=== PATIENT | male | born 1935 | race Caucasian/White ===

== ENCOUNTER 2017-02-25 17:33 | Emergency (ER) | payer MEDICARE ==
[~2017-02-25] VITALS: Ht 172.7 cm; Wt 59.9 kg
[2017-02-25] MEDS ORDERED: TRAM50 PO (17:42)
[2017-02-25] MEDS ORDERED: Oxycodone HCl20 M1 PO (17:42)
[2017-02-25] MEDS ORDERED: LISI20 PO (17:43)
[2017-02-25] MEDS ORDERED: Zanaflex6 MG PO (17:43)
== END 2017-02-25 18:18 | disposition home or self-care (01) ==
LOC: ER 17:33
DX: M25.511 Pain in right shoulder (principal); M25.512 Pain in left shoulder; M25.551 Pain in right hip; Z79.899 Other long term (current) drug therapy; Z87.891 Personal history of nicotine dependence
CPT/HCPCS: 99283

== ENCOUNTER 2017-03-19 12:35 | Emergency (ER) | payer MEDICARE ==
[~2017-03-19] VITALS: Ht 172.7 cm; Wt 60.8 kg
[~2017-03-19 12:35] MED LIST: LISI20 PO; Oxycodone HCl20 M1 PO; TRAM50 PO; Zanaflex6 MG PO
[2017-03-19] MEDS ORDERED: ROPI2 PO (16:04)
[2017-03-19] MEDS ORDERED: Prinivil10 MG PO (16:04)
[2017-03-19] MEDS ORDERED: HYDMOR4 PO (16:04)
== END 2017-03-19 16:44 | disposition home or self-care (01) ==
LOC: ER 12:35
DX: M54.16 Radiculopathy, lumbar region (principal)
CPT/HCPCS: 96372; 99284; J1170; J1885

== ENCOUNTER 2017-03-20 18:02 | Emergency (ER) | payer MEDICARE ==
[~2017-03-20] VITALS: Ht 172.7 cm; Wt 60.8 kg
[~2017-03-20 18:02] MED LIST changes: +HYDMOR4 PO; +Prinivil10 MG PO; +ROPI2 PO
== END 2017-03-20 21:12 | disposition home or self-care (01) ==
LOC: ER 18:02
DX: M54.5 Low back pain (principal); G89.29 Other chronic pain; R05 Cough; G47.00 Insomnia, unspecified; Z79.899 Other long term (current) drug therapy; Z79.891 Long term (current) use of opiate analgesic; Z87.891 Personal history of nicotine dependence
CPT/HCPCS: 71046; 96372; 99284; J1170

== ENCOUNTER 2017-08-17 07:53 | Day surgery (SDC) | payer MEDICARE ==
[~2017-08-17] VITALS: Ht 170.2 cm; Wt 59.9 kg
[~2017-08-17 07:53] MED LIST changes: +Zanaflex6 MG; -Zanaflex6 MG PO
[2017-08-17] MEDS ORDERED: Acidophilus La100 GM PO (08:16)
[2017-08-17] MEDS ORDERED: Garlic1000 MG PO (08:17)
== END 2017-08-17 10:05 | disposition home or self-care (01) ==
LOC: ORSCSDS 07:53
PROVIDERS: Internal Medicine Gastroenterology
PROC: 0DJD8ZZ Inspection of Lower Intestinal Tract, Via Natural or Artificial Opening Endoscopic (ICD-10-PCS; principal; 2017-08-17 09:15)
PROC: 0DB68ZX Excision of Stomach, Via Natural or Artificial Opening Endoscopic, Diagnostic (ICD-10-PCS; principal; 2017-08-17 09:15)
DX: R19.5 Other fecal abnormalities (principal); D50.9 Iron deficiency anemia, unspecified; K22.2 Esophageal obstruction; K29.70 Gastritis, unspecified, without bleeding; I10 Essential (primary) hypertension; Z79.82 Long term (current) use of aspirin; Z79.899 Other long term (current) drug therapy; Z87.891 Personal history of nicotine dependence
CPT/HCPCS: 88305; 88342; J7120

== ENCOUNTER 2017-10-29 06:08 | Day surgery (SDC) | payer MEDICARE ==
[~2017-10-29] VITALS: Ht 170.2 cm; Wt 62.6 kg
[~2017-10-29 06:08] MED LIST changes: +Acidophilus La100 GM PO; +Garlic1000 MG PO; -Zanaflex6 MG; +Zanaflex6 MG PO
[2017-10-29] MEDS ORDERED: OXYC5 PO (17:17)
== END 2017-10-29 17:49 | disposition home or self-care (01) ==
LOC: ORSCMMR 06:08 → SURS 11:50 → ORSCMMR 17:49
PROVIDERS: Orthopaedic Surgery
PROC: 01NB0ZZ Release Lumbar Nerve, Open Approach (ICD-10-PCS; principal; 2017-10-29 07:30)
DX: M47.816 Spondylosis without myelopathy or radiculopathy, lumbar region (principal); M48.061 Spinal stenosis, lumbar region without neurogenic claudication; I10 Essential (primary) hypertension; Z79.899 Other long term (current) drug therapy
CPT/HCPCS: 97161; G8978; G8979; G8980; J0330; J0690; J1100; J2405; J2710; J3010; J3370; J7120

== ENCOUNTER → 2021-05-10 | Outpatient (CLI) | payer OTHER ==
[~2021-05-10] MED LIST changes: +OXYC5 PO
[2021-05-11 15:29] LABS: U Amphetamine Screen Not Detected; U Barbituate Screen Not Detected; U Benzodiazapine Screen Not Detected; U Buprenorphine Screen Not Detected; U Cannabinoids Screen Not Detected; U Cocaine Screen Not Detected; U Methadone Screen Not Detected; U Methamphetamine Screen Not Detected; U Opiates Screen Not Detected; U Oxycodone Screen Not Detected; U Phencyclidine Screen Not Detected; U Propoxyphene Screen Not Detected
== END | disposition home or self-care (01) ==
LOC: LAB SHORT 16:15
PROVIDERS: Internal Medicine
DX: Z51.81 Encounter for therapeutic drug level monitoring (principal); Z79.891 Long term (current) use of opiate analgesic